=== PATIENT | female | born 1985 | race Two or more races ===

== ENCOUNTER 2022-05-22 07:41 | Outpatient (CLI) | payer OTHER ==
[~2022-05-22 07:41] MED LIST: FLONASE16 G1 NS; LAMICTAL XR300 MG PO; PROTONIX20 MG PO; SYNTHROID50 MCG PO; TRILEPTAL300 MG; ZYRTEC10 MG PO
== END 2022-05-22 07:42 | disposition home or self-care (01) ==
LOC: NUCLEAR 07:41
PROVIDERS: ATTEND Internal Medicine
DX: I25.9 Chronic ischemic heart disease, unspecified (principal); Z88.6 Allergy status to analgesic agent; Z88.1 Allergy status to other antibiotic agents; Z88.8 Allergy status to other drugs, medicaments and biological substances

== ENCOUNTER 2022-06-17 09:47 | Emergency (ER) | payer OTHER ==
[~2022-06-17] VITALS: Ht 157.5 cm; Wt 52.6 kg
== END 2022-06-17 12:08 | disposition home or self-care (01) ==
LOC: ER 09:47
DX: O20.9 Hemorrhage in early pregnancy, unspecified (principal); Z3A.01 Less than 8 weeks gestation of pregnancy

== ENCOUNTER 2022-10-24 10:35 | Outpatient (CLI) | payer OTHER | END 2022-10-24 10:45 | disposition home or self-care (01) | LOC: NUCLEAR 10:35 | PROVIDERS: ATTEND Internal Medicine | DX: R00.2 Palpitations (principal); I41 Myocarditis in diseases classified elsewhere; I49.1 Atrial premature depolarization; Z34.82 Encounter for supervision of other normal pregnancy, second trimester ==

== ENCOUNTER 2023-01-15 10:45 | Inpatient (IN) | payer OTHER ==
[~2023-01-15] VITALS: Ht 157.5 cm; Wt 70.8 kg
[2023-01-23] MEDS ORDERED: BUDESONIDE0.5 MG/21 (11:33)
[2023-01-23] MEDS ORDERED: FUSION PLUS CA1 EACH (11:33)
[2023-01-23] MEDS ORDERED: FLONASE16 GM (11:33)
[2023-01-23] MEDS ORDERED: PROVENTIL HFA6.7 GM (11:33)
[2023-01-23] MEDS ORDERED: LEVO-T25 MCG (11:36)
[2023-01-23] MEDS ORDERED: LAMICTAL100 MG (11:36)
== END 2023-01-26 14:11 | disposition home or self-care (01) | DRG 788 ==
LOC: O/R 01-23 07:45 → OB/GYN 01-23 07:45
PROVIDERS: ADMIT Obstetrics & Gynecology Gynecology; ATTEND Obstetrics & Gynecology Gynecology
PROC: 4A1HXCZ Monitoring of Products of Conception, Cardiac Rate, External Approach (ICD-10-PCS; 2023-01-23)
PROC: 10D00Z1 Extraction of Products of Conception, Low, Open Approach (ICD-10-PCS; principal; 2023-01-23 10:35)
DX: O32.1XX0 Maternal care for breech presentation, not applicable or unspecified (principal); Z3A.39 39 weeks gestation of pregnancy; Z37.0 Single live birth; Z20.822 Contact with and (suspected) exposure to COVID-19

== ENCOUNTER 2024-04-01 14:46 | Outpatient (CLI) | payer OTHER ==
[~2024-04-01 14:46] MED LIST changes: +BUDESONIDE0.5 MG/21; +FLONASE16 GM; +FUSION PLUS CA1 EACH; +LAMICTAL100 MG; +LEVO-T25 MCG; +PROVENTIL HFA6.7 GM
== END 2024-04-01 14:52 | disposition home or self-care (01) ==
LOC: RAD 14:46
PROVIDERS: ATTEND Internal Medicine Endocrinology, Diabetes & Metabolism
DX: M25.521 Pain in right elbow (principal)